=== PATIENT | male | born 1945 | race Caucasian/White ===

== ENCOUNTER → 2016-10-31 | Outpatient (CLI) | payer MEDICARE, BC, OTHER ==
[2016-10-31 13:10] LABS: MEAN CORPUSCULAR HEMOGLOBIN 31.8 pg (27.0-33.0); MEAN CORPUSCULAR HGB CONC 33.7 g/dl (32.0-36.5); MEAN CORPUSCULAR VOLUME 94.2 fl (80.0-96.0); RED CELL DISTRIBUTION WIDTH 11.9 % (11.5-14.5); WHITE BLOOD COUNT 11.4 K/mm3 (4.0-10.0)
[2016-10-31 13:22] LABS: ALBUMIN 3.9 GM/DL (3.2-5.2); ALBUMIN/GLOBULIN RATIO 1.22 (1.00-1.93); BILIRUBIN,TOTAL 0.8 MG/DL (0.2-1.0); CALCIUM LEVEL 9.1 MG/DL (8.8-10.2); CREATININE FOR GFR 1.45 MG/DL (0.70-1.30); GLOMERULAR FILTRATION RATE 51.1 (>42); POTASSIUM SERUM 5.1 MEQ/L (3.5-5.1); TOTAL PROTEIN 7.1 GM/DL (6.4-8.2)
== END ==
LOC: M SMT 08:58
PROVIDERS: ATTEND Internal Medicine
DX: I10 Essential (primary) hypertension (principal); M19.90 Unspecified osteoarthritis, unspecified site

== ENCOUNTER → 2016-10-31 | Outpatient (CLI) | payer MEDICARE, BC, OTHER ==
--- NOTE | 2016-10-31 15:29 | REP ---
Clinical: Chronic renal disease. Technique: Real time mcdowell scale ultrasound examination using curved array transducer. Findings: Right kidney is normal in reniform shape and echogenicity without hydronephrosis, nephrolithiasis, or renal mass lesion. Right kidney measures 9.9 x 4.2 x 5.2 cm with 2.0 cm simple upper pole exophytic cyst. Left kidney is normal in reniform shape and echogenicity without hydronephrosis, nephrolithiasis, or renal mass lesion. Left kidney measures 9.8 x 4.6 x 4.9 cm with 2.9 cm simple mid pole cyst. Bladder is unremarkable and bilateral ureteral jets are identified. Prostate gland is mildly prominent measuring 4.5 x 3.4 x 3.2 cm. Impression: Bilateral solitary simple renal cysts. Signed by Dwaine Sherman MD 10/31/2016 03:20 P
== END ==
LOC: M RAD 14:34
PROVIDERS: ATTEND Internal Medicine Nephrology
DX: N28.1 Cyst of kidney, acquired (principal); N18.3 Chronic kidney disease, stage 3 (moderate); I12.9 Hypertensive chronic kidney disease with stage 1 through stage 4 chronic kidney disease, or unspecified chronic kidney disease; M19.90 Unspecified osteoarthritis, unspecified site

== ENCOUNTER → 2016-11-14 | Outpatient (REF) | payer MEDICARE, BC, OTHER | LOC: M LAB REF 14:14 | PROVIDERS: ATTEND Nurse Practitioner Family | DX: D53.9 Nutritional anemia, unspecified (principal) ==

== ENCOUNTER → 2016-12-18 | Outpatient (CLI) | payer MEDICARE, BC, OTHER ==
[2016-12-18 13:43] LABS: MEAN CORPUSCULAR HEMOGLOBIN 31.7 pg (27.0-33.0); RED CELL DISTRIBUTION WIDTH 12.2 % (11.5-14.5); WHITE BLOOD COUNT 7.3 K/mm3 (4.0-10.0)
== END ==
LOC: M SMT 10:42
PROVIDERS: ATTEND Internal Medicine Cardiovascular Disease
DX: E78.5 Hyperlipidemia, unspecified (principal); D53.9 Nutritional anemia, unspecified; I10 Essential (primary) hypertension

== ENCOUNTER 2017-01-30 09:03 | Inpatient (IN) | payer MEDICARE, BC, OTHER ==
[2017-01-13 11:10] VITALS: BP 136/82
[~2017-01-30] VITALS: Ht 175.3 cm; Wt 83.9 kg
[~2017-01-30 09:03] MED LIST: ASPI81TA85 PO; CO Q10CA PO; GABA-283 PO; LIPI20TA PO; MULT1TAB18 PO; PAXI20TA3 PO; ceFAZolin 1GM INJ (J0690) As Ordered ONE
[2017-01-30] MEDS ORDERED: LR 1,000 ML IV ONE (09:15)
[2017-01-30] MEDS ORDERED: ACETAMINOPHEN 500 MG TAB PO ONE (09:15)
[2017-01-30] MEDS ORDERED: LR 1,000 ML IV SCH ×2 (09:15→14:30)
[2017-01-30] MEDS ORDERED: ceFAZolin 1GM INJ (J0690) As Ordered ONE (10:52)
[2017-01-30] MEDS ORDERED: PROPOFOL 500 MG/50 ML VIAL As Ordered ONE (10:53)
[2017-01-30] MEDS ORDERED: fentaNYL 100 MCG/2 ML INJECTION (J3010) As Ordered ONE ×2 (10:54→11:26)
[2017-01-30] MEDS ORDERED: MIDAZOLAM INJ 2 MG/2 ML VIAL (J2250) As Ordered ONE (10:54)
[2017-01-30] MEDS ORDERED: ROPIvacaine 0.5% 30 ML INJECTION (J2795) As Ordered ONE (11:25)
[2017-01-30] MEDS ORDERED: ONDANSETRON 4MG/2ML VIAL (J2405) As Ordered ONE (12:07)
[2017-01-30] MEDS ORDERED: BUPIVACAINE HCL 0.5% 10 ML VIAL As Ordered ONE (12:10)
[2017-01-30] MEDS ORDERED: ePHEDrine SULFATE 25 MG/5 ML(5MG/ML) SYRINGE As Ordered ONE ×2 (12:25→13:48)
[2017-01-30] MEDS ORDERED: MORPHINE 1MG/ML IN 0.9% NACL 100ML IV BAG As Ordered ONE (13:43)
[2017-01-30] MEDS ORDERED: FLEET ENEMA PR PRN (14:15)
[2017-01-30] MEDS ORDERED: EPIDURAL/PCA KEYS XX PRN (14:30)
[2017-01-30] MEDS ORDERED: fentaNYL 100 MCG/2 ML INJECTION (J3010) IV PRN (14:30)
[2017-01-30] MEDS ORDERED: NALBUPHINE HCL 10 MG/ML AMP (J2300) IV PRN (14:30)
[2017-01-30] MEDS ORDERED: ONDANSETRON 4MG/2ML VIAL (J2405) IV PRN ×2 (14:30)
[2017-01-30] MEDS ORDERED: diphenhydrAMINE INJ 50MG/ML VIAL (J1200) IV PRN (14:30)
[2017-01-30] MEDS ORDERED: NALOXONE INJ 0.4 MG/1 ML VIAL (J2310) IV PRN (14:30)
[2017-01-30] MEDS ORDERED: MORPHINE 1MG/ML IN 0.9% NACL 100ML IV BAG IV PRN (14:30)
[2017-01-30] MEDS: NS 1,000 ML IV SCH (16:32)
[2017-01-30] MEDS ORDERED: WARFARIN SOD 5 MG TAB PO SCH (17:00)
[2017-01-30 19:45] VITALS: BP 121/72
[2017-01-30] MEDS: ATORVASTATIN 20 MG TAB PO SCH (20:09)
[2017-01-30] MEDS: GABAPENTIN 400 MG CAP PO SCH (20:09)
[2017-01-30] MEDS: PARoxetine 20 MG TAB PO SCH (20:09)
[2017-01-30 20:45] VITALS: BP 126/60
[2017-01-30 21:45] VITALS: BP 104/56
[2017-01-31 02:00] VITALS: BP 116/69
[2017-01-31] MEDS: NS 1,000 ML IV SCH (02:45)
[2017-01-31 05:43] LABS: MEAN CORPUSCULAR HEMOGLOBIN 32.1 pg (27.0-33.0); MEAN CORPUSCULAR HGB CONC 32.9 g/dl (32.0-36.5); MEAN CORPUSCULAR VOLUME 97.4 fl (80.0-96.0); RED CELL DISTRIBUTION WIDTH 12.3 % (11.5-14.5); WHITE BLOOD COUNT 19.4 K/mm3 (4.0-10.0)
[2017-01-31 05:55] LABS: CALCIUM LEVEL 7.9 MG/DL (8.8-10.2); CREATININE FOR GFR 1.35 MG/DL (0.70-1.30); GLOMERULAR FILTRATION RATE 55.5 (>42)
[2017-01-31 05:56] LABS: INR 1.08
[2017-01-31 06:00] VITALS: BP 127/72
[2017-01-31] MEDS ORDERED: PERCOCET 5MG/325MG TAB PO PRN (07:00)
[2017-01-31] MEDS ORDERED: ONDANSETRON 4 MG TAB (S0181) PO PRN (07:00)
[2017-01-31] MEDS: SENOKOT S TAB PO SCH ×2 (09:20→20:25)
[2017-01-31] MEDS: MIRALAX *UNIT DOSE* 17GM PACKET PO SCH (09:20)
[2017-01-31] MEDS: GABAPENTIN 400 MG CAP PO SCH ×2 (09:20→20:26)
[2017-01-31] MEDS: MOM 30ML SUSPENSION UDC PO SCH (09:20)
--- NOTE | 2017-01-31 09:30 | REP ---
Clinical: Status post arthroplasty. Technique: AP and cross-table lateral views. Findings: The patient is status post left hip replacement with normal positioning and appearance to the femoral and acetabular components. Overlying postsurgical changes appreciated. Impression: Satisfactory left hip replacement radiographs. Signed by Dwaine Sherman MD 01/31/2017 09:21 A
[2017-01-31 10:00] VITALS: BP 114/70
[2017-01-31] MEDS ORDERED: TAMSULOSIN 0.4 MG CAP PO ONE (10:45)
--- NOTE | 2017-01-31 12:33 | IPNPDOC ---
Subjective Date Seen The patient was seen on 01/30/17. Subjective Chief Complaint/HPI The patient is a 71-year-old male admitted with a reason for visit of Left Hip Arthritis. Events since last encounter patient admitted for elective left total hip replacement for advanced osteoarthritis, Had uneventful surgery , pateint denies any nausea or vomiting or diarrhea, denies any chest pain or cough or sob. Objective Physical Examination General Exam: Positive: Alert, Cooperative, No Acute Distress Eye Exam: Positive: PERRLA, Conjunctiva & lids normal, EOMI, Negative: Sclera icteric ENT Exam: Positive: Atraumatic, Mucous membr. moist/pink, Pharynx Normal Neck Exam: Positive: Supple, Negative: JVD, thyromegaly Chest Exam: Positive: Clear to auscultation, Normal air movement Heart Exam: Positive: Rate Normal, Regular Rhythm, Normal S1, Normal S2, Negative: Murmurs, Rubs Abdomen Exam: Positive: Normal bowel sounds, Soft, Negative: Tenderness, Hepatospenomegaly Extremity Exam: Positive: Normal pulses, Negative: Clubbing, Cyanosis, Edema Assessment /Plan Problems (1) S/P total hip arthroplasty Problem Text: patient will be followed by Dr Sandoval from 01/31/17 pain control and dvt prophylaxis as per orthopedics. (2) CKD (chronic kidney disease), stage III Status: Chronic Response to Treatment: Stable (3) Hyperlipemia Status: Chronic Response to Treatment: Stable Problem Text: continue home medications (4) Depression Status: Chronic Response to Treatment: Stable Problem Text: continue home medications. Plan/VTE VTE Prophylaxis Ordered?: Yes VS, I&O, 24H, Fishbone Vital Signs/I&O Vital Signs Date Time Temp Pulse Resp B/P (MAP) Pulse Ox O2 Delivery O2 Flow Rate FiO2 01/30/17 14:39 97.0 64 20 133/86 (102) 98 Room Air SYLVIA ROMAN MD January 30, 2017 15:20
--- NOTE | 2017-01-31 13:20 | RO ---
DATE OF PROCEDURE: 01/30/2017 PREOPERATIVE DIAGNOSIS: Left hip osteoarthritis. POSTOPERATIVE DIAGNOSIS: Left hip osteoarthritis. PROCEDURE: Left total hip arthroplasty using a high offset #7 Banks stem with a +12 neck, 36 mm head, 54 mm cup with a neutral polyethylene liner. SURGEON: Dr. Jannette Lee NUTRITION COUNSELOR: Mr. Marcio Carter ANESTHESIA: Spinal. COMPLICATIONS: None. ESTIMATED BLOOD LOSS: About 150 mL. SPECIMENS: Femoral head. DESCRIPTION OF PROCEDURE: Antibiotics were given intravenously preoperatively. Then, a successful spinal anesthetic was induced and a Jade catheter was placed, and he was placed in a lateral decubitus position using a Packwood hip positioner. Down leg was well padded, especially peroneal nerve. The left hip area was then prepped and draped in the usual sterile fashion. Then, after appropriate time-out, a longitudinal incision was made for a direct lateral approach to the hip. Bovie cautery was used to coagulate crossing vessels. Tensor fascia was divided in line with the skin incision. We split the gluteus medius in the anterior one-third/posterior two-third junction, then divided the underlying gluteus minimus, and then divided the anterior capsule and carefully dissected the gluteus minimus and gluteus medius off the anterior aspect of the proximal femur as we externally rotated the hip and dislocated it anteriorly. A starter reamer was placed in the piriformis fossa, followed by the canal finding reamer, then the lateralizing reamer. Then, we reamed up to a size 6 reamer, then performed a proximal femoral osteotomy. We were a bit long initially, almost a fingerbreadth and a half above the lesser trochanter; thus, I trimmed it down a bit, then began broaching up to a size 6 broach, but it called for actually a 7 broach because the 6 still had quite a bit of room in the medial calcar. So, I reamed with a 7 reamer, then introduced the 7 broach, and that fit snugly down about a half to three-quarters of a fingerbreadth above the lesser trochanter. Calcar planer was used. I then exposed the acetabulum and performed a complete labral excision 360 degrees and then began reaming, beginning with a 47 mm reamer, advanced up to a 53 mm reamer. The 54 trial fit nicely, but I had to deepen quite a bit in order to get good rim contact. The cup fit nicely with the 54. I then placed the neutral liner, and then we began our trials. We first trialed with the #7 standard offset 1.5 neck with a 36 ball, but it clearly was calling for much more length as well as more offset. The extramedullary guide was used also to place the cup to help set our version and abduction angle. Then, I trialed up to a high offset +8 neck length, and he had good stability with flexion internal rotation and extension external rotation but still had a fair amount of telescoping. Then, I felt we needed a bit more length for better soft tissue tension; thus, I trialed with a +12 with a high offset stem. This gave him a good stable hip with good stability to flexion internal rotation and extension external rotation; thus, I felt this would be the appropriate length and offset. We then removed the trial components, copiously pulsatile lavage irrigated out the femoral canal, placed the real #7 Banks stem, high offset, dried the trunnion, placed the +12 x 36 mm ball, and then reduced the hip. We copiously irrigated out the hip joint and then closed the gluteus back anatomically with interrupted #1 PDS sutures. Then, I closed the gluteus back anatomically with interrupted #1 PDS sutures, irrigated between layers, closed the tensor fascia with a combination of interrupted #1 PDS sutures, then a running #1 single-arm Stratafix, then irrigated again, closed the deep subdermal layers with interrupted #2-0 PDS sutures. Skin was closed with oniel, covered by Adaptic dry sterile bulky dressing. He was then turned supine, and then transferred to the recovery room in stable condition. There were no intraoperative complications. Mr. Marcio Carter was critical to the success of the procedure by helping to manipulate the leg, helping to dislocate and relocate it several times as I placed the leg in the anterior leg bag several times throughout the operation, helped to prepare the patient for surgery, helped to close the wound, amongst many other tasks. Edited: [facility] 02/02/2017 [id number]
[2017-01-31 14:00] VITALS: BP 124/60
--- NOTE | 2017-01-31 14:33 | IPNPDOC ---
Subjective Date Seen The patient was seen on 01/31/17. Subjective Chief Complaint/HPI The patient is a 71-year-old male admitted with a reason for visit of Left Hip Arthritis. General: Denies: Chills, Night Sweats Constitutional: Denies: Chills, Fever Eyes: Denies: Pain, Vision change ENT: Denies: Head Aches, Ear Pain Skin: Denies: Rash, Lesions Pulmonary: Denies: Dyspnea, Cough Cardiovascular: Denies: Chest Pain, Palpitations Gastrointestinal: Denies: Nausea, Vomiting Genitourinary: Denies: Dysuria, Frequency Hematologic: Denies: Bruising, Bleeding Excessively Objective Physical Examination General Exam: Positive: Alert, Cooperative, No Acute Distress Eye Exam: Positive: PERRLA, Conjunctiva & lids normal, EOMI, Negative: Sclera icteric ENT Exam: Positive: Atraumatic, Mucous membr. moist/pink, Pharynx Normal Neck Exam: Positive: Supple, Negative: JVD, thyromegaly Chest Exam: Positive: Clear to auscultation, Normal air movement Heart Exam: Positive: Rate Normal, Regular Rhythm, Normal S1, Normal S2, Negative: Murmurs, Rubs Abdomen Exam: Positive: Normal bowel sounds, Soft, Negative: Tenderness, Hepatospenomegaly Extremity Exam: Positive: Normal pulses, Other (Left hip with limited ROM 2/2 surgery. Neurovascularly intact distally.), Negative: Clubbing, Cyanosis, Edema Assessment /Plan Problems (1) S/P total hip arthroplasty Status: Acute Response to Treatment: Stable Problem Text: s/p Left total hip arthroplasty on 01/30/17 pain mgmt and dvt prophylaxis as per orthopedics service (2) CKD (chronic kidney disease), stage III Status: Chronic Response to Treatment: Stable Problem Text: Serum Cr at baseline (3) Hyperlipemia Status: Chronic Response to Treatment: Stable Problem Text: continue statin (4) Depression Status: Chronic Response to Treatment: Stable Problem Text: continue paxil (5) BPH (benign prostatic hyperplasia) Status: Chronic Response to Treatment: Stable Problem Text: Cont Flomax Plan/VTE VTE Prophylaxis Ordered?: Yes VS, I&O, 24H, Fishbone Vital Signs/I&O Vital Signs Date Time Temp Pulse Resp B/P (MAP) Pulse Ox O2 Delivery O2 Flow Rate FiO2 01/31/17 10:00 16 01/31/17 10:00 98.6 93 114/70 (85) 91 Room Air 01/31/17 05:14 2.0 01/30/17 23:33 94 I&O- Last 24 Hours up to 6 AM 01/31/17 06:00 Intake Total 1210 ml Output Total 700 ml Balance 510 ml Laboratory Data 24H LABS Laboratory Tests 2 01/31/17 05:33: Prothrombin Time 14.1, Prothromb Time International Ratio 1.08, Anion Gap 3L, Glomerular Filtration Rate 55.5, Blood Urea Nitrogen 17, Creatinine 1.35H, Sodium Level 138, Potassium Level 5.0, Chloride Level 105, Carbon Dioxide Level 30, Calcium Level 7.9L CBC/BMP Laboratory Tests 01/31/17 05:33 Red Blood Count 3.86 L, Mean Corpuscular Volume 97.4 H, Mean Corpuscular Hemoglobin 32.1, Mean Corpuscular Hemoglobin Concent 32.9, Red Cell Distribution Width 12.3, Calcium Level 7.9 L DAYSI HOLM MD January 31, 2017 14:33
[2017-01-31] MEDS ORDERED: WARFARIN SOD 5 MG TAB PO ONE (17:00)
[2017-01-31] MEDS: TAMSULOSIN 0.4 MG CAP PO SCH (20:25)
[2017-01-31] MEDS: ATORVASTATIN 20 MG TAB PO SCH (20:25)
[2017-01-31] MEDS: PARoxetine 20 MG TAB PO SCH (20:26)
[2017-01-31] MEDS: PERCOCET 5MG/325MG TAB PO PRN (20:26)
[2017-01-31 22:00] VITALS: BP 123/61
[2017-02-01] MEDS: PERCOCET 5MG/325MG TAB PO PRN ×2 (02:59→09:51)
[2017-02-01 06:00] VITALS: BP 109/56
[2017-02-01 06:25] LABS: MEAN CORPUSCULAR HEMOGLOBIN 32.3 pg (27.0-33.0); MEAN CORPUSCULAR HGB CONC 33.4 g/dl (32.0-36.5); MEAN CORPUSCULAR VOLUME 96.7 fl (80.0-96.0); RED CELL DISTRIBUTION WIDTH 12.2 % (11.5-14.5); WHITE BLOOD COUNT 15.3 K/mm3 (4.0-10.0)
[2017-02-01 06:28] LABS: INR 1.56
[2017-02-01 06:51] LABS: CALCIUM LEVEL 7.9 MG/DL (8.8-10.2); CREATININE FOR GFR 1.47 MG/DL (0.70-1.30); GLOMERULAR FILTRATION RATE 50.3 (>42); POTASSIUM SERUM 4.9 MEQ/L (3.5-5.1)
[2017-02-01] MEDS ORDERED: CALCIUM GLUCONATE 1,000 MG in D5W MINI-BAG PLUS 100 ML IV ONE (09:00)
--- NOTE | 2017-02-01 09:04 | RO ---
DATE OF PROCEDURE: 01/31/2017 PREPROCEDURE DIAGNOSIS: POSTPROCEDURE DIAGNOSIS: PROCEDURE: Complex Jade catheter placement at bedside. SURGEON: Dr. Kayla Grant. FOOD SAFETY OFFICER: None. ANESTHESIA: None. DESCRIPTION OF PROCEDURE: Proper patient was identified. Permission was granted to place the Jade catheter. We prepped him in the usual fashion with Betadine. I then used the lubricant, injected this into the urethra for maximal lubrication. The gel did appear to go through more consistent with benign prostatic hypertrophy (BPH) than stricture. I then took and #18-Nigerien Coud catheter and with gentle continuous pressure, I was able to advance it all the way into the bladder. I then flushed the catheter to flush out the lubricant and then we obtained over 900 mL of clear urine. The patient felt immediately better. The balloon was inflated and the procedure was terminated.
--- NOTE | 2017-02-01 09:04 | CR ---
DATE OF CONSULTATION: 01/31/2017 ATTENDING PHYSICIAN: Dr. Lee REQUESTED SERVICES: Urology, Dr. Grant. CHIEF COMPLAINT: Acute urinary retention. HISTORY OF PRESENT ILLNESS: Mr. Skinner is a very pleasant 71-year-old male who is postop day 1 from a left hip replacement. He has been unable to void since the surgery yesterday. A bladder scans have been performed which were inaccurate but just showed greater than 250 mL. He has been uncomfortable with distention. The nurses have been unable to place a Jade catheter so urology was asked to assist. The patient does report that he had nocturia two to three prior to admission. He felt he had a reasonable stream, not a strong one but a reasonable one, and he felt like he was able to empty his bladder okay. He has never had prostate problems before and he has never been on any prostate medication. His past medical history is significant for high cholesterol and depression. His past surgical history includes left tib/fib open reduction, internal fixation and left finger amputation and now left hip replacement. ALLERGIES: No known drug allergies Medications are listed on the chart. SOCIAL HISTORY: He is a retired [employer] advisor. There is no history of alcohol tobacco or illicit drug use. FAMILY HISTORY: Noncontributory. Review of system is positive for the difficulty urinating, nocturia and decreased force of flow, but he denies any chest pain or shortness of breath, any hematuria, hematochezia, hemoptysis, blood emesis, headaches, seizure, stroke, numbness or weakness of the extremities, nausea, vomiting, diarrhea, constipation, fever, or chills. On exam, he is a very pleasant, delightful 71-year-old gentleman who is in good spirits, but is mildly uncomfortable from bladder distention. He is cooperative with the exam. He is afebrile. Vital signs stable. HEENT is normocephalic, atraumatic. Neck is supple without lymphadenopathy or thyromegaly. Cardiovascular is regular rate and rhythm without rub, gallops or murmurs. Lung skelton are clear to auscultation bilaterally. Abdomen is soft, nontender, not distended. This was after draining his bladder. Extremities show no clubbing, cyanosis or edema. He has a fresh incision on his left hip from his hip replacement yesterday. Genitourinary () exam reveals a normal uncircumcised phallus with bilateral descended testicles. LABORATORY: White blood cell count 19.4, hemoglobin and hematocrit 12.4 and 37.6. Creatinine is 1.35. His INR is 1.08. ASSESSMENT: 1. Acute urinary retention. 2. Likely secondary to benign prostatic hypertrophy (BPH). 3. Nocturia two to three. PLAN: I will go ahead and attempt to place a Coud catheter at bedside. If this fails, then I will attempt to stilette and possibly need cystoscopic guidance to get into the bladder. In addition to that, I am also going to place him on Flomax. I am going to give him 0.8 mg dose now and then will start 0.4 mg by mouth nightly starting again tonight, and I am going to recommend that you given him till Thursday to do a voiding trial.
[2017-02-01] MEDS: MOM 30ML SUSPENSION UDC PO SCH (09:51)
[2017-02-01] MEDS: MIRALAX *UNIT DOSE* 17GM PACKET PO SCH (09:51)
[2017-02-01] MEDS: GABAPENTIN 400 MG CAP PO SCH ×2 (09:51→21:43)
[2017-02-01] MEDS: SENOKOT S TAB PO SCH ×2 (09:51→21:43)
--- NOTE | 2017-02-01 11:49 | IPNPDOC ---
Assessment/Plan Date Seen The patient was seen on 02/01/17. Patient Summary pt with aur secondary to bph and post op from left hip replacement. on flomax. urine clear. plan on d/c young in am and give voiding trail. if voids well will leave young out if fails void trial will either teach pt how to cath himself or replace the young either way please d/c pt with flomax and have him f/u with local urologist. Problems (1) S/P total hip arthroplasty Status: Acute (2) CKD (chronic kidney disease), stage III Status: Chronic (3) Hyperlipemia Status: Chronic (4) Depression Status: Chronic (5) BPH (benign prostatic hyperplasia) Status: Chronic Response to Treatment: Improving Urology Problem Text: plan as above Plan/VTE VTE Prophylaxis Ordered?: Yes Subjective Review oF Systems Chief Complaint The patient is a 71-year-old male admitted with a reason for visit of Left Hip Arthritis. Events since Last Encounter pt with aur secondary to bph and post op from left hip replacement. on flomax. urine clear. General: Reports: Normal Appetite, Denies: Fatigue, Malaise Constitutional: Reports: Weakness Genitourinary: Reports: Retention (tolerating young well) Musculoskeletal: Reports: Joint Pain (pain in left hip as expected.) Psych: Reports: Mood Normal Objective Physical Examination General Exam: Cooperative, Mild Distress Heart Exam: Positive: Rate Normal, Regular Rhythm, Normal S1, Normal S2, Negative: Murmurs, Rubs Male Exam: Normal Genital Exam (young in position, draining well with clear urine.) Vital Signs/I&O Vital Signs Date Time Temp Pulse Resp B/P (MAP) Pulse Ox O2 Delivery O2 Flow Rate FiO2 02/01/17 10:21 18 02/01/17 06:00 98.2 80 109/56 (73) 94 Room Air 01/31/17 05:14 2.0 01/30/17 23:33 94 I&O- Last 24 Hours up to 6 AM 02/01/17 05:59 Intake Total 780 ml Output Total 1450 ml Balance -670 ml Laboratory Data Labs 24H Laboratory Tests 2 02/01/17 05:32: Prothrombin Time 18.8H, Prothromb Time International Ratio 1.56, Anion Gap 6L, Glomerular Filtration Rate 50.3, Blood Urea Nitrogen 19H, Creatinine 1.47H, Sodium Level 136, Potassium Level 4.9, Chloride Level 100, Carbon Dioxide Level 30, Calcium Level 7.9L CBC/BMP Laboratory Tests 02/01/17 05:32 Red Blood Count 3.35 L, Mean Corpuscular Volume 96.7 H, Mean Corpuscular Hemoglobin 32.3, Mean Corpuscular Hemoglobin Concent 33.4, Red Cell Distribution Width 12.2, Calcium Level 7.9 L DEMARIO NATION MD February 01, 2017 11:49
[2017-02-01 14:00] VITALS: BP 142/69
--- NOTE | 2017-02-01 15:19 | IPNPDOC ---
Subjective Date Seen The patient was seen on 02/01/17. Subjective Chief Complaint/HPI The patient is a 71-year-old male admitted with a reason for visit of Left Hip Arthritis. General: Denies: Chills, Night Sweats Constitutional: Denies: Chills, Fever Eyes: Denies: Pain, Vision change ENT: Denies: Head Aches, Ear Pain Skin: Denies: Rash, Lesions Pulmonary: Denies: Dyspnea, Cough Cardiovascular: Denies: Chest Pain, Palpitations Gastrointestinal: Denies: Nausea, Vomiting Genitourinary: Denies: Dysuria, Frequency Hematologic: Denies: Bruising, Bleeding Excessively Objective Physical Examination General Exam: Positive: Alert, Cooperative, No Acute Distress Eye Exam: Positive: PERRLA, Conjunctiva & lids normal, EOMI, Negative: Sclera icteric ENT Exam: Positive: Atraumatic, Mucous membr. moist/pink, Pharynx Normal Neck Exam: Positive: Supple, Negative: JVD, thyromegaly Chest Exam: Positive: Clear to auscultation, Normal air movement Heart Exam: Positive: Rate Normal, Regular Rhythm, Normal S1, Normal S2, Negative: Murmurs, Rubs Abdomen Exam: Positive: Normal bowel sounds, Soft, Negative: Tenderness, Hepatospenomegaly Extremity Exam: Positive: Normal pulses, Other (Left hip with limited ROM 2/2 surgery. Neurovascularly intact distally.), Negative: Clubbing, Cyanosis, Edema Assessment /Plan Problems (1) S/P total hip arthroplasty Status: Acute Problem Text: s/p Left total hip arthroplasty on 01/30/17 pain mgmt and dvt prophylaxis as per orthopedics service (2) CKD (chronic kidney disease), stage III Status: Chronic Problem Text: Serum Cr at baseline (3) Hyperlipemia Status: Chronic Problem Text: continue statin (4) Depression Status: Chronic Problem Text: continue paxil (5) BPH (benign prostatic hyperplasia) Status: Chronic Problem Text: Cont Flomax, F/U with Urology Plan/VTE VTE Prophylaxis Ordered?: Yes VS, I&O, 24H, Fishbone Vital Signs/I&O Vital Signs Date Time Temp Pulse Resp B/P (MAP) Pulse Ox O2 Delivery O2 Flow Rate FiO2 02/01/17 11:49 Room Air 02/01/17 10:21 18 02/01/17 06:00 98.2 80 109/56 (73) 94 01/31/17 05:14 2.0 01/30/17 23:33 94 I&O- Last 24 Hours up to 6 AM 02/01/17 06:00 Intake Total 1020 ml Output Total 2450 ml Balance -1430 ml Laboratory Data 24H LABS Laboratory Tests 2 02/01/17 05:32: Prothrombin Time 18.8H, Prothromb Time International Ratio 1.56, Anion Gap 6L, Glomerular Filtration Rate 50.3, Blood Urea Nitrogen 19H, Creatinine 1.47H, Sodium Level 136, Potassium Level 4.9, Chloride Level 100, Carbon Dioxide Level 30, Calcium Level 7.9L CBC/BMP Laboratory Tests 02/01/17 05:32 Red Blood Count 3.35 L, Mean Corpuscular Volume 96.7 H, Mean Corpuscular Hemoglobin 32.3, Mean Corpuscular Hemoglobin Concent 33.4, Red Cell Distribution Width 12.2, Calcium Level 7.9 L DAYSI HOLM MD February 01, 2017 15:18
[2017-02-01] MEDS: ACETAMINOPHEN TAB 650MG DOSE (2X325MG) PO PRN (15:28)
[2017-02-01] MEDS ORDERED: WARFARIN SOD 5 MG TAB PO ONE (17:00)
[2017-02-01] MEDS: ATORVASTATIN 20 MG TAB PO SCH (21:43)
[2017-02-01] MEDS: TAMSULOSIN 0.4 MG CAP PO SCH (21:43)
[2017-02-01] MEDS: PARoxetine 20 MG TAB PO SCH (21:43)
[2017-02-01 22:00] VITALS: BP 132/70
[2017-02-02] MEDS: ACETAMINOPHEN TAB 650MG DOSE (2X325MG) PO PRN (05:25)
[2017-02-02 06:00] VITALS: BP 130/71
[2017-02-02 06:47] LABS: MEAN CORPUSCULAR HEMOGLOBIN 32.7 pg (27.0-33.0); MEAN CORPUSCULAR HGB CONC 34.1 g/dl (32.0-36.5); MEAN CORPUSCULAR VOLUME 95.9 fl (80.0-96.0); RED CELL DISTRIBUTION WIDTH 12.2 % (11.5-14.5); WHITE BLOOD COUNT 11.3 K/mm3 (4.0-10.0)
[2017-02-02 06:52] LABS: ANION GAP 4 MEQ/L (8-16); BLOOD UREA NITROGEN 16 MG/DL (7-18); CALCIUM LEVEL 8.3 MG/DL (8.8-10.2); CARBON DIOXIDE LEVEL 32 MEQ/L (21-32); CHLORIDE LEVEL 100 MEQ/L (98-107); CREATININE FOR GFR 1.23 MG/DL (0.70-1.30); GLOMERULAR FILTRATION RATE > 60.0 (>42); GLUCOSE, FASTING 121 MG/DL (83-110); POTASSIUM SERUM 4.4 MEQ/L (3.5-5.1); SODIUM LEVEL 136 MEQ/L (136-145)
[2017-02-02 06:54] LABS: INR 1.67
[2017-02-02] MEDS: GABAPENTIN 400 MG CAP PO SCH ×2 (08:58→21:20)
[2017-02-02] MEDS: SENOKOT S TAB PO SCH ×2 (08:58→21:20)
[2017-02-02] MEDS: traMADol 50 MG TAB PO PRN ×2 (08:58→16:23)
[2017-02-02] MEDS: MIRALAX *UNIT DOSE* 17GM PACKET PO SCH (08:59)
[2017-02-02] MEDS: MOM 30ML SUSPENSION UDC PO SCH (08:59)
[2017-02-02 14:00] VITALS: BP 157/83
--- NOTE | 2017-02-02 16:48 | IPNPDOC ---
Subjective Date Seen The patient was seen on 02/02/17. Subjective Chief Complaint/HPI The patient is a 71-year-old male admitted with a reason for visit of Left Hip Arthritis. General: Denies: Chills, Night Sweats Constitutional: Denies: Chills Eyes: Denies: Pain, Vision change ENT: Denies: Head Aches, Ear Pain Skin: Denies: Rash, Lesions Pulmonary: Denies: Dyspnea, Cough Cardiovascular: Denies: Chest Pain, Palpitations Gastrointestinal: Denies: Nausea, Vomiting Genitourinary: Denies: Dysuria, Frequency Hematologic: Denies: Bruising, Bleeding Excessively Objective Physical Examination General Exam: Positive: Alert, Cooperative, No Acute Distress Eye Exam: Positive: PERRLA, Conjunctiva & lids normal, EOMI, Negative: Sclera icteric ENT Exam: Positive: Atraumatic, Mucous membr. moist/pink, Pharynx Normal Neck Exam: Positive: Supple, Negative: JVD, thyromegaly Chest Exam: Positive: Clear to auscultation, Normal air movement Heart Exam: Positive: Rate Normal, Regular Rhythm, Normal S1, Normal S2, Negative: Murmurs, Rubs Abdomen Exam: Positive: Normal bowel sounds, Soft, Negative: Tenderness, Hepatospenomegaly Extremity Exam: Positive: Normal pulses, Other (Left hip with limited ROM 2/2 surgery. Neurovascularly intact distally.), Negative: Clubbing, Cyanosis, Edema Assessment /Plan Problems (1) S/P total hip arthroplasty Status: Acute Problem Text: s/p Left total hip arthroplasty on 01/30/17 pain mgmt and dvt prophylaxis as per orthopedics service (2) CKD (chronic kidney disease), stage III Status: Chronic Problem Text: Serum Cr at baseline (3) Hyperlipemia Status: Chronic Problem Text: continue statin (4) Depression Status: Chronic Problem Text: continue paxil (5) BPH (benign prostatic hyperplasia) Status: Chronic Problem Text: Cont Flomax, F/U with Urology Plan/VTE VTE Prophylaxis Ordered?: Yes VS, I&O, 24H, Fishbone Vital Signs/I&O Vital Signs Date Time Temp Pulse Resp B/P (MAP) Pulse Ox O2 Delivery O2 Flow Rate FiO2 02/02/17 16:23 14 Room Air 02/02/17 14:00 100.4 85 157/83 (107) 96 01/31/17 05:14 2.0 01/30/17 23:33 94 I&O- Last 24 Hours up to 6 AM 02/02/17 05:59 Intake Total 2220 ml Output Total 3600 ml Balance -1380 ml Laboratory Data 24H LABS Laboratory Tests 2 02/02/17 06:18: Prothrombin Time 19.8H, Prothromb Time International Ratio 1.67, Anion Gap 4L, Glomerular Filtration Rate > 60.0, Blood Urea Nitrogen 16, Creatinine 1.23, Sodium Level 136, Potassium Level 4.4, Chloride Level 100, Carbon Dioxide Level 32, Calcium Level 8.3L CBC/BMP Laboratory Tests 02/02/17 06:18 Red Blood Count 3.15 L, Mean Corpuscular Volume 95.9, Mean Corpuscular Hemoglobin 32.7, Mean Corpuscular Hemoglobin Concent 34.1, Red Cell Distribution Width 12.2, Calcium Level 8.3 L DAYSI HOLM MD February 02, 2017 16:48
[2017-02-02] MEDS ORDERED: WARFARIN SOD 3 MG TAB PO ONE (17:00)
[2017-02-02] MEDS: PARoxetine 20 MG TAB PO SCH (21:20)
[2017-02-02] MEDS: TAMSULOSIN 0.4 MG CAP PO SCH (21:20)
[2017-02-02] MEDS: ATORVASTATIN 20 MG TAB PO SCH (21:20)
[2017-02-02 22:00] VITALS: BP 132/77
[2017-02-03] MEDS: traMADol 50 MG TAB PO PRN ×3 (05:22→16:44)
[2017-02-03 06:00] VITALS: BP 130/69
[2017-02-03 06:52] LABS: INR 1.71
[2017-02-03] MEDS: GABAPENTIN 400 MG CAP PO SCH ×2 (08:27→21:31)
[2017-02-03] MEDS: MIRALAX *UNIT DOSE* 17GM PACKET PO SCH (08:28)
[2017-02-03] MEDS: MOM 30ML SUSPENSION UDC PO SCH (08:28)
[2017-02-03] MEDS: SENOKOT S TAB PO SCH ×2 (08:28→21:30)
[2017-02-03 08:35] LABS: ALBUMIN 2.5 GM/DL (3.2-5.2); ALBUMIN/GLOBULIN RATIO 0.66 (1.00-1.93); BILIRUBIN,TOTAL 0.7 MG/DL (0.2-1.0); CALCIUM LEVEL 8.2 MG/DL (8.8-10.2); CREATININE FOR GFR 1.27 MG/DL (0.70-1.30); GLOMERULAR FILTRATION RATE 59.5 (>42); POTASSIUM SERUM 4.5 MEQ/L (3.5-5.1); TOTAL PROTEIN 6.3 GM/DL (6.4-8.2)
[2017-02-03 08:45] LABS: BASO % 0.2 % (0.0-1.0); EOS # 0.2 K/mm3 (0.0-0.50); LARGE UNSTAINED CELL # 0.2 K/mm3 (0.0-0.4); LARGE UNSTAINED CELL % 1.8 % (0.0-4.0); LYMPH # 1.1 K/mm3 (1.5-4.5); LYMPH % 9.1 % (24.0-44.0); MEAN CORPUSCULAR HEMOGLOBIN 32.1 pg (27.0-33.0); MEAN CORPUSCULAR HGB CONC 33.3 g/dl (32.0-36.5); MEAN CORPUSCULAR VOLUME 96.4 fl (80.0-96.0); MONO # 0.7 K/mm3 (0.0-0.8); MONO % 6.4 % (0.0-5.0); NEUTROPHILS # 8.1 K/mm3 (1.8-7.7); NEUTROPHILS % 80.5 % (36.0-66.0); PLATELET COUNT, AUTOMATED 198 k/mm3 (150-450); RED CELL DISTRIBUTION WIDTH 12.3 % (11.5-14.5); WHITE BLOOD COUNT 10.1 K/mm3 (4.0-10.0)
[2017-02-03 14:00] VITALS: BP 134/80
--- NOTE | 2017-02-03 15:26 | IPNPDOC ---
Text Note Date of Service The patient was seen on 02/03/17. NOTE Subjective: Patient was seen and examined at the bedside. Patient notes that he is having mild pain at the site, although notes that it's tolerable. He denies any problems. Advised him that physical therapy will continue. Objective: Vitals (See below) General: Lying in bed, no acute distress, comfortable, AAOx3 HEENT: NC, AT CVS: RRR, +S1S2 Lungs: Fair air entry b/l, -w/r/r Abdomen: Soft, ND, NT, +BSx4 Extremities: +PPx4, - Edema, - Calf tenderness, Left hip tenderness Assessment and plan: 1. Left hip pain - 2/2 arthritis - s/p Left hip total arthroplasty (POD #4) - Wound shows no signs of infection, but does have large amounts of drainage - c/w Physical therapy - Pain management and DVT prophylaxis is being monitored by primary team ( Orthopedic service) 2. CKD3 - Cr at baseline 3. DLP - c/w atorvastatin 4. Depression - c/w Paroxetine 5. BPH - c/w Tamsulosin - Will need to follow up with urology 6. DVT prophylaxis - c/w full anticoagulation with Coumadin - Managed by primary team VSAnyi, I+O VS, Anyi, I+O Laboratory Tests 02/03/17 08:00 Red Blood Count 3.27 L, Mean Corpuscular Volume 96.4 H, Mean Corpuscular Hemoglobin 32.1, Mean Corpuscular Hemoglobin Concent 33.3, Red Cell Distribution Width 12.3, Neutrophils (%) (Auto) 80.5 H, Lymphocytes (%) (Auto) 9.1 L, Monocytes (%) (Auto) 6.4 H, Eosinophils (%) (Auto) 2.0, Basophils (%) ( Auto) 0.2, Neutrophils # (Auto) 8.1 H, Lymphocytes # (Auto) 1.1 L, Monocytes # ( Auto) 0.7, Eosinophils # (Auto) 0.2, Basophils # (Auto) 0.0, Calcium Level 8.2 L , Aspartate Amino Transf (AST/SGOT) 39 H, Alanine Aminotransferase (ALT/SGPT) 22 , Alkaline Phosphatase 82, Total Bilirubin 0.7, Total Protein 6.3 L, Albumin 2.5 L Vital Signs Date Time Temp Pulse Resp B/P (MAP) Pulse Ox O2 Delivery O2 Flow Rate FiO2 02/03/17 14:00 100.1 84 18 134/80 (98) 96 Room Air 01/31/17 05:14 2.0 01/30/17 23:33 94 I&O- Last 24 Hours up to 6 AM 02/03/17 06:00 Intake Total 1560 ml Output Total 3175 ml Balance -1615 ml MARY JANE NUÑEZ MD February 03, 2017 15:26
[2017-02-03] MEDS: ACETAMINOPHEN TAB 650MG DOSE (2X325MG) PO PRN (15:49)
[2017-02-03] MEDS ORDERED: WARFARIN SOD 3 MG TAB PO ONE (17:00)
[2017-02-03] MEDS: TAMSULOSIN 0.4 MG CAP PO SCH (21:30)
[2017-02-03] MEDS: ATORVASTATIN 20 MG TAB PO SCH (21:30)
[2017-02-03] MEDS: PARoxetine 20 MG TAB PO SCH (21:31)
[2017-02-03 22:00] VITALS: BP 129/78
[2017-02-04] MEDS: traMADol 50 MG TAB PO PRN ×2 (05:16→11:56)
[2017-02-04 06:00] VITALS: BP 132/76
[2017-02-04 07:05] LABS: BASO % 0.3 % (0.0-1.0); EOS # 0.2 K/mm3 (0.0-0.50); EOS % 3.5 % (0.0-3.0); LARGE UNSTAINED CELL # 0.2 K/mm3 (0.0-0.4); LARGE UNSTAINED CELL % 2.3 % (0.0-4.0); LYMPH # 1.1 K/mm3 (1.5-4.5); LYMPH % 13.8 % (24.0-44.0); MEAN CORPUSCULAR HEMOGLOBIN 32.4 pg (27.0-33.0); MEAN CORPUSCULAR HGB CONC 33.2 g/dl (32.0-36.5); MEAN CORPUSCULAR VOLUME 97.4 fl (80.0-96.0); MONO # 0.5 K/mm3 (0.0-0.8); MONO % 8.1 % (0.0-5.0); NEUTROPHILS # 4.7 K/mm3 (1.8-7.7); NEUTROPHILS % 71.9 % (36.0-66.0); PLATELET COUNT, AUTOMATED 212 k/mm3 (150-450); RED CELL DISTRIBUTION WIDTH 12.2 % (11.5-14.5); WHITE BLOOD COUNT 6.6 K/mm3 (4.0-10.0)
[2017-02-04 07:12] LABS: INR 1.8
[2017-02-04] MEDS ORDERED: COUM2.5T11 PO (07:37)
[2017-02-04] MEDS ORDERED: TRAM50TA2 PO (07:37)
[2017-02-04 08:02] LABS: ALBUMIN 2.4 GM/DL (3.2-5.2); ALBUMIN/GLOBULIN RATIO 0.77 (1.00-1.93); ALKALINE PHOSPHATASE 83 U/L (45-117); ALT/SGPT 31 U/L (12-78); ANION GAP 7 MEQ/L (8-16); AST/SGOT 42 U/L (15-37); BILIRUBIN,TOTAL 0.7 MG/DL (0.2-1.0); BLOOD UREA NITROGEN 22 MG/DL (7-18); CALCIUM LEVEL 8.1 MG/DL (8.8-10.2); CARBON DIOXIDE LEVEL 28 MEQ/L (21-32); CHLORIDE LEVEL 104 MEQ/L (98-107); CREATININE FOR GFR 1.24 MG/DL (0.70-1.30); GLOMERULAR FILTRATION RATE > 60.0 (>42); GLUCOSE, FASTING 99 MG/DL (83-110); MAGNESIUM LEVEL 2.5 MG/DL (1.8-2.4); POTASSIUM SERUM 4.4 MEQ/L (3.5-5.1); SODIUM LEVEL 139 MEQ/L (136-145); TOTAL PROTEIN 5.5 GM/DL (6.4-8.2)
[2017-02-04] MEDS: MIRALAX *UNIT DOSE* 17GM PACKET PO SCH (08:57)
[2017-02-04] MEDS: GABAPENTIN 400 MG CAP PO SCH (08:57)
[2017-02-04] MEDS: SENOKOT S TAB PO SCH (08:57)
[2017-02-04] MEDS: MOM 30ML SUSPENSION UDC PO SCH (08:57)
[2017-02-04] MEDS ORDERED: PEG1POW PO (09:28)
[2017-02-04] MEDS ORDERED: FLOM5CAP PO (09:28)
--- NOTE | 2017-02-04 11:42 | IPNPDOC ---
Text Note Date of Service The patient was seen on 02/04/17. NOTE Subjective: Patient was seen and examined at the bedside. He notes that he continued to make progress with physical therapy and the drainage from his hip has been minimal. Objective: Vitals (See below) General: Lying in bed, no acute distress, comfortable, AAOx3 HEENT: NC, AT CVS: RRR, +S1S2 Lungs: Fair air entry b/l, -w/r/r Abdomen: Soft, ND, NT, +BSx4 Extremities: +PPx4, - Edema, - Calf tenderness, Left hip tenderness Assessment and plan: 1. Left hip pain - 2/2 arthritis - s/p Left hip total arthroplasty (POD #5) - Wound shows no signs of infection, but does have large amounts of drainage - c/w Physical therapy - Pain management and DVT prophylaxis is being monitored by primary team ( Orthopedic service) 2. CKD3 - Cr at baseline 3. DLP - c/w atorvastatin 4. Depression - c/w Paroxetine 5. BPH - c/w Tamsulosin - Will need to follow up with urology 6. DVT prophylaxis - c/w full anticoagulation with Coumadin - Managed by primary team VSAnyi, I+O VS, Anyi, I+O Laboratory Tests 02/04/17 06:43 Red Blood Count 3.27 L, Mean Corpuscular Volume 97.4 H, Mean Corpuscular Hemoglobin 32.4, Mean Corpuscular Hemoglobin Concent 33.2, Red Cell Distribution Width 12.2, Neutrophils (%) (Auto) 71.9 H, Lymphocytes (%) (Auto) 13.8 L, Monocytes (%) (Auto) 8.1 H, Eosinophils (%) (Auto) 3.5 H, Basophils (%) (Auto) 0.3, Neutrophils # (Auto) 4.7, Lymphocytes # (Auto) 1.1 L, Monocytes # ( Auto) 0.5, Eosinophils # (Auto) 0.2, Basophils # (Auto) 0.0, Calcium Level 8.1 L , Aspartate Amino Transf (AST/SGOT) 42 H, Alanine Aminotransferase (ALT/SGPT) 31 , Alkaline Phosphatase 83, Total Bilirubin 0.7, Total Protein 5.5 L, Albumin 2.4 L Vital Signs Date Time Temp Pulse Resp B/P (MAP) Pulse Ox O2 Delivery O2 Flow Rate FiO2 02/04/17 10:00 Room Air 02/04/17 06:00 99.6 83 18 132/76 (94) 94 02/04/17 05:16 95 01/31/17 05:14 2.0 I&O- Last 24 Hours up to 6 AM 02/04/17 06:00 Intake Total 1920 ml Output Total 2050 ml Balance -130 ml MARY JANE NUÑEZ MD February 04, 2017 11:42
== END 2017-02-04 12:15 | disposition home health service (06) | DRG 470 ==
LOC: M OR 09:03 → M MS5PR 14:50
PROVIDERS: ADMIT Orthopaedic Surgery; ATTEND Orthopaedic Surgery
PROC: 0SRB02Z Replacement of Left Hip Joint with Metal on Polyethylene Synthetic Substitute, Open Approach (ICD-10-PCS; principal; 2017-01-30 11:40)
DX: M16.12 Unilateral primary osteoarthritis, left hip (principal); N18.3 Chronic kidney disease, stage 3 (moderate); E78.5 Hyperlipidemia, unspecified; F32.9 Major depressive disorder, single episode, unspecified; N40.0 Benign prostatic hyperplasia without lower urinary tract symptoms; R33.8 Other retention of urine

== ENCOUNTER → 2017-02-16 | Outpatient (REF) | payer MEDICARE, OTHER ==
[~2017-02-16] MED LIST changes: +COUM2.5T11 PO; +FLOM5CAP PO; +PEG1POW PO; +TRAM50TA2 PO; -ceFAZolin 1GM INJ (J0690) As Ordered ONE
[2017-02-16 12:15] LABS: INR 1.47
== END ==
LOC: M LABDRAW1 10:55
PROVIDERS: ATTEND Orthopaedic Surgery
DX: Z51.81 Encounter for therapeutic drug level monitoring (principal); Z79.01 Long term (current) use of anticoagulants

== ENCOUNTER → 2017-03-16 | Outpatient (REF) | payer MEDICARE, OTHER ==
[~2017-03-16] MED LIST changes: -COUM2.5T11 PO; +COUM2.5T17 PO; +PAXI20TA29 PO; -PAXI20TA3 PO
[2017-03-16 13:03] LABS: BASO % 0.5 % (0.0-1.0); EOS # 0.2 K/mm3 (0.0-0.50); EOS % 2.7 % (0.0-3.0); LARGE UNSTAINED CELL # 0.2 K/mm3 (0.0-0.4); LARGE UNSTAINED CELL % 1.6 % (0.0-4.0); LYMPH # 1.8 K/mm3 (1.5-4.5); LYMPH % 19.3 % (24.0-44.0); MEAN CORPUSCULAR HEMOGLOBIN 31.2 pg (27.0-33.0); MEAN CORPUSCULAR HGB CONC 32.9 g/dl (32.0-36.5); MEAN CORPUSCULAR VOLUME 94.9 fl (80.0-96.0); MONO # 0.6 K/mm3 (0.0-0.8); MONO % 6.7 % (0.0-5.0); NEUTROPHILS # 6.4 K/mm3 (1.8-7.7); NEUTROPHILS % 69.2 % (36.0-66.0); PLATELET COUNT, AUTOMATED 243 k/mm3 (150-450); RED CELL DISTRIBUTION WIDTH 12.9 % (11.5-14.5); WHITE BLOOD COUNT 9.3 K/mm3 (4.0-10.0)
[2017-03-16 13:49] LABS: ALBUMIN 3.7 GM/DL (3.2-5.2); CALCIUM LEVEL 9.2 MG/DL (8.8-10.2); CREATININE FOR GFR 1.42 MG/DL (0.70-1.30); GLOMERULAR FILTRATION RATE 52.2 (>42); PHOSPHORUS LEVEL 3.2 MG/DL (2.5-4.9)
[2017-03-16 14:08] LABS: POTASSIUM SERUM 5.4 MEQ/L (3.5-5.1)
== END ==
LOC: M LAB REF 12:12 → M LABDRWAD 12:12
PROVIDERS: ATTEND Internal Medicine Nephrology
DX: N18.3 Chronic kidney disease, stage 3 (moderate) (principal); D63.1 Anemia in chronic kidney disease

== ENCOUNTER → 2017-05-30 | Outpatient (CLI) | payer MEDICARE, BC, OTHER ==
--- NOTE | 2017-05-31 09:06 | REP ---
Clinical: Trauma. Fall. Technique: AP, lateral, bilateral oblique views of the left wrist. Findings: There is a subtle nondisplaced fracture involving the distal radial metaphysis which appears to extend to the articular surface. Overlying soft tissue swelling is appreciated. The remainder of the osseous structures appear intact. Underlying age-related degenerative changes noted. Impression: Subtle nondisplaced fracture involving the distal radial metaphysis extending to the articular surface. Signed by Dwaine Sherman MD 05/31/2017 08:09 A
--- NOTE | 2017-05-31 09:06 | REP ---
Clinical: Trauma. Fall. Technique: AP, lateral, bilateral oblique views of the left hand. Findings: There is a subtle nondisplaced fracture involving the distal radial metaphysis extending to the articular surface. 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 Underlying age-related osteoarthritic degenerative changes throughout the wrist and hand. Impression: Subtle nondisplaced fracture involving the distal radial metaphysis. Age-related osteopenia and arthritic degenerative changes. Signed by Dwaine Sherman MD 05/31/2017 08:14 A
--- NOTE | 2017-05-31 09:06 | REP ---
Clinical: Trauma. Technique: Frontal view of the chest with multiple views of the left hemithorax. Findings: Frontal view of the chest demonstrates no acute cardiopulmonary process. Multiple views of the left hemithorax demonstrates no obvious acute rib fracture or pathology. Impression: Normal left rib series Signed by Dwaine Sherman MD 05/31/2017 08:13 A
== END ==
LOC: M RAD 19:32
PROVIDERS: ATTEND Physician Assistant
DX: R07.81 Pleurodynia (principal); S62.92XA Unspecified fracture of left hand, initial encounter for closed fracture; X58.XXXA Exposure to other specified factors, initial encounter; Y92.9 Unspecified place or not applicable; Y93.9 Activity, unspecified; Y99.9 Unspecified external cause status

== ENCOUNTER → 2017-06-22 | Outpatient (CLI) | payer MEDICARE, BC, OTHER ==
[2017-06-22 19:27] LABS: ALBUMIN 3.9 GM/DL (3.2-5.2); ALBUMIN/GLOBULIN RATIO 1.26 (1.00-1.93); BILIRUBIN,TOTAL 0.5 MG/DL (0.2-1.0); CALCIUM LEVEL 9.6 MG/DL (8.8-10.2); CREATININE FOR GFR 1.35 MG/DL (0.70-1.30); GLOMERULAR FILTRATION RATE 55.3 (>42); POTASSIUM SERUM 4.9 MEQ/L (3.5-5.1)
[2017-06-22 19:38] LABS: MEAN CORPUSCULAR HEMOGLOBIN 30.8 pg (27.0-33.0); MEAN CORPUSCULAR HGB CONC 32.4 g/dl (32.0-36.5); MEAN CORPUSCULAR VOLUME 95.1 fl (80.0-96.0); RED CELL DISTRIBUTION WIDTH 13.2 % (11.5-14.5); WHITE BLOOD COUNT 7.5 10^3/uL (4.0-10.0)
== END ==
LOC: M SMT 09:11
PROVIDERS: ATTEND Internal Medicine Cardiovascular Disease
DX: E78.5 Hyperlipidemia, unspecified (principal); I10 Essential (primary) hypertension

== ENCOUNTER → 2017-06-22 | Outpatient (CLI) | payer MEDICARE, BC, OTHER ==
[2017-06-22 19:25] LABS: ALBUMIN 3.9 GM/DL (3.2-5.2); CALCIUM LEVEL 9.1 MG/DL (8.8-10.2); CREATININE FOR GFR 1.38 MG/DL (0.70-1.30); GLOMERULAR FILTRATION RATE 53.9 (>42); MAGNESIUM LEVEL 2.5 MG/DL (1.8-2.4); PHOSPHORUS LEVEL 3.6 MG/DL (2.5-4.9); POTASSIUM SERUM 5.1 MEQ/L (3.5-5.1); URIC ACID 6.3 MG/DL (3.5-7.2)
[2017-06-22 19:52] LABS: BASO % 0.5 % (0.0-1.0); EOS # 0.4 10^3/uL (0.0-0.50); IMMATURE GRANULOCYTE % 0.3 % (0-0); LYMPH # 1.5 10^3/uL (1.5-4.5); LYMPH % 19.8 % (24.0-44.0); MEAN CORPUSCULAR HEMOGLOBIN 30.8 pg (27.0-33.0); MEAN CORPUSCULAR HGB CONC 32.3 g/dl (32.0-36.5); MEAN CORPUSCULAR VOLUME 95.1 fl (80.0-96.0); MONO # 0.6 10^3/uL (0.0-0.8); MONO % 8.5 % (0.0-5.0); NEUTROPHILS # 4.9 10^3/uL (1.8-7.7); NEUTROPHILS % 65.9 % (36.0-66.0); PLATELET COUNT, AUTOMATED 281 10^3/uL (150-450); RED CELL DISTRIBUTION WIDTH 13.3 % (11.5-14.5); WHITE BLOOD COUNT 7.4 10^3/uL (4.0-10.0)
== END ==
LOC: M SMT 09:15
PROVIDERS: ATTEND Internal Medicine Nephrology
DX: I12.9 Hypertensive chronic kidney disease with stage 1 through stage 4 chronic kidney disease, or unspecified chronic kidney disease (principal); N18.3 Chronic kidney disease, stage 3 (moderate); D63.1 Anemia in chronic kidney disease; E87.5 Hyperkalemia; E78.5 Hyperlipidemia, unspecified

== ENCOUNTER → 2018-06-24 | Outpatient (REF) | payer MEDICARE, BC, OTHER ==
[2018-06-24 15:08] LABS: FERRITIN 85 NG/ML (26-388); IRON (FE) 55 UG/DL (65-175); PERCENT SATURATION 18.5 % (19.7-50.0); TOTAL IRON BINDING CAPACITY 297 UG/DL (250-450)
[2018-06-24 15:23] LABS: FOLATE > 24.0 NG/ML
== END ==
LOC: M LAB REF 14:02
DX: N18.3 Chronic kidney disease, stage 3 (moderate) (principal); D63.1 Anemia in chronic kidney disease
CPT/HCPCS: 82746

== ENCOUNTER → 2018-07-01 | Outpatient (CLI) | payer MEDICARE, BC, OTHER ==
[2018-07-01 14:04] LABS: BASO # 0.1 10^3/uL (0.0-0.2); BASO % 0.8 % (0.0-1.0); EOS # 0.3 10^3/uL (0.0-0.50); EOS % 4.3 % (0.0-3.0); HEMATOCRIT 42.5 % (42.0-52.0); HEMOGLOBIN 13.7 g/dl (13.5-17.5); IMMATURE GRANULOCYTE % 0.2 % (0-3.0); LYMPH # 1.2 10^3/uL (1.5-4.5); LYMPH % 19.3 % (24.0-44.0); MEAN CORPUSCULAR HEMOGLOBIN 31.4 pg (27.0-33.0); MEAN CORPUSCULAR HGB CONC 32.2 g/dl (32.0-36.5); MEAN CORPUSCULAR VOLUME 97.5 fl (80.0-96.0); MONO # 0.6 10^3/uL (0.0-0.8); MONO % 9.9 % (0.0-5.0); NEUTROPHILS % 65.5 % (36.0-66.0); PLATELET COUNT, AUTOMATED 239 10^3/uL (150-450); RED BLOOD COUNT 4.36 10^6/uL (4.30-6.10); RED CELL DISTRIBUTION WIDTH 11.9 % (11.5-14.5); WHITE BLOOD COUNT 6.1 10^3/uL (4.0-10.0)
[2018-07-01 14:23] LABS: ALBUMIN 3.9 GM/DL (3.2-5.2); ALKALINE PHOSPHATASE 97 U/L (45-117); ALT/SGPT 27 U/L (12-78); ANION GAP 5 MEQ/L (8-16); AST/SGOT 24 U/L (7-37); BILIRUBIN,TOTAL 0.5 MG/DL (0.2-1.0); BLOOD UREA NITROGEN 20 MG/DL (7-18); CALCIUM LEVEL 9.5 MG/DL (8.8-10.2); CARBON DIOXIDE LEVEL 31 MEQ/L (21-32); CHLORIDE LEVEL 106 MEQ/L (98-107); CHOLESTEROL LEVEL 152 MG/DL (<200); CREATININE FOR GFR 1.41 MG/DL (0.70-1.30); FREE T4 0.87 NG/DL (0.76-1.46); GLOMERULAR FILTRATION RATE 52.5 (>42); GLUCOSE, FASTING 99 MG/DL (70-100); HDL CHOLESTEROL 50 MG/DL (>40); LDL CHOLESTEROL 88 MG/DL (<100); NON-HDL-C 102 MG/DL; POTASSIUM SERUM 5.8 MEQ/L (3.5-5.1); PSA SCREENING 1.23 NG/ML (< 4.0); SODIUM LEVEL 142 MEQ/L (136-145); TOTAL PROTEIN 6.9 GM/DL (6.4-8.2); TRIGLYCERIDES LEVEL 70 MG/DL (<150)
[2018-07-01 14:26] LABS: TOTAL 25(OH) VITAMIN D 52.4 NG/ML (30.0-100.0)
[2018-07-01 15:31] LABS: ESTIMATED AVERAGE GLUCOSE 108 MG/DL (60-110); HEMOGLOBIN A1c 5.4 %
== END ==
LOC: M SMT 10:01
DX: E78.5 Hyperlipidemia, unspecified (principal); N18.3 Chronic kidney disease, stage 3 (moderate); N40.0 Benign prostatic hyperplasia without lower urinary tract symptoms; Z79.899 Other long term (current) drug therapy; E55.9 Vitamin D deficiency, unspecified
CPT/HCPCS: 84443

== ENCOUNTER 2018-12-07 10:13 | Day surgery (SDC) | payer MEDICARE, BC, OTHER ==
[~2018-12-07] VITALS: Ht 175.3 cm; Wt 81.6 kg
[~2018-12-07 10:13] MED LIST changes: +BUSP5TA PO; +FERR325T16 PO; +FISH7.5C PO; +FLOM0.4C39 PO; -FLOM5CAP PO; -GABA-283 PO; +GABA-845 PO; +PAXI30TA11 PO; +STOO100C PO; +VITA100066 PO
[2018-12-07] MEDS ORDERED: NS 1,000 ML IV ONE (10:45)
[2018-12-07] MEDS ORDERED: LIDOCAINE 2% INJ 100 MG/5 ML SDV (FOR ANES.) As Ordered ONE (11:00)
[2018-12-07] MEDS ORDERED: PROPOFOL 200 MG/20 ML VIAL As Ordered ONE (11:01)
--- NOTE | 2018-12-07 11:27 | ROOR ---
Patient Name: Antony Skinner Procedure Date: 12/07/2018 11:01 AM Date of : 1945 Age: 73 Room: [facility] Gender: Male Note Status: Finalized Procedure: Colonoscopy Indications: Screening for colorectal malignant neoplasm Providers: Arun GARCIA MD Referring MD: Anthony Dodge MD Requesting Provider: Medicines: Monitored Anesthesia Care Complications: No immediate complications. Procedure: Pre-Anesthesia Assessment: - The heart rate, respiratory rate, oxygen saturations, blood pressure, adequacy of pulmonary ventilation, and response to care were monitored throughout the procedure. The Colonoscope was introduced through the anus and advanced to the cecum, identified by appendiceal orifice and ileocecal valve. The colonoscopy was performed without difficulty. The patient tolerated the procedure well. Findings: The perianal and digital rectal examinations were normal. A 5 mm polyp was found in the cecum. The polyp was sessile. The polyp was removed with a cold snare. Resection and retrieval were complete. Redundant sigmoid colon and small Internal Hemorrhoids. The exam was otherwise without abnormality on direct and retroflexion views. Impression: - One 5 mm polyp in the cecum, removed with a cold snare. Resected and retrieved. - Small Internal Hemorrhoids. - The examination was otherwise normal on direct and retroflexion views. Recommendation: - Repeat colonoscopy in 5 years for surveillance. Arun Garcia MD Arun GARCIA MD 12/07/2018 11:26:41 AM Electronically signed by Arun GARCIA MD Number of Addenda: 0 Note Initiated On: 12/07/2018 11:01 AM Estimated Blood Loss: Estimated blood loss: none.
[2018-12-07 11:45] VITALS: BP 120/77
== END 2018-12-07 11:51 | disposition home or self-care (01) ==
LOC: M OPP 10:13
PROVIDERS: ATTEND Internal Medicine Gastroenterology
DX: Z12.11 Encounter for screening for malignant neoplasm of colon (principal); D12.0 Benign neoplasm of cecum; K64.8 Other hemorrhoids; Z79.899 Other long term (current) drug therapy

== ENCOUNTER → 2019-03-22 | Outpatient (REF) | payer MEDICARE, OTHER ==
[~2019-03-22] MED LIST changes: +MM S100C PO; -STOO100C PO
[2019-03-22 12:38] LABS: HEMATOCRIT 42.7 % (42.0-52.0); HEMOGLOBIN 14.1 g/dl (13.5-17.5); MEAN CORPUSCULAR HEMOGLOBIN 32.7 pg (27.0-33.0); MEAN CORPUSCULAR VOLUME 99.1 fl (80.0-96.0); PLATELET COUNT, AUTOMATED 211 10^3/uL (150-450); RED BLOOD COUNT 4.31 10^6/uL (4.30-6.10); WHITE BLOOD COUNT 6.6 10^3/uL (4.0-10.0)
[2019-03-22 13:55] LABS: ALBUMIN 3.8 GM/DL (3.2-5.2); BILIRUBIN,TOTAL 0.5 MG/DL (0.2-1.0); CALCIUM LEVEL 8.7 MG/DL (8.8-10.2); CHOLESTEROL RISK RATIO 3.222 (<5); CREATININE FOR GFR 1.47 MG/DL (0.70-1.30); FREE T4 0.88 NG/DL (0.76-1.46); GLOMERULAR FILTRATION RATE 49.9 (>42); PERCENT SATURATION 21.9 % (19.7-50.0); POTASSIUM SERUM 5.1 MEQ/L (3.5-5.1); THYROID STIMULATING HORMONE 3.15 uIU/ML (0.358-3.740); TOTAL 25(OH) VITAMIN D 47.1 NG/ML (30.0-100.0); TOTAL PROTEIN 7.1 GM/DL (6.4-8.2)
== END ==
LOC: M SFHCADAM 09:11
PROVIDERS: ATTEND Family Medicine
DX: N18.3 Chronic kidney disease, stage 3 (moderate) (principal); E78.5 Hyperlipidemia, unspecified; E61.1 Iron deficiency; F41.8 Other specified anxiety disorders

== ENCOUNTER → 2019-06-16 | Outpatient (CLI) | payer MEDICARE, OTHER ==
--- NOTE | 2019-06-17 13:25 | REP ---
Left ribs series four views: There are fractures of the left sixth and seventh ribs anteriorly identified on one view only. PA chest: Comparison is 01/13/2017. There is no pneumothorax, hemothorax or pulmonary contusion. Lung skelton are clear. Cardiac size is normal. The shana, mediastinum, skeletal structures are unremarkable except for two orthopedic anchor screws in the right humeral head, unchanged. Impression: Negative PA chest. Electronically Signed by Jewel Torre MD 06/17/2019 01:17 P
== END ==
LOC: M ADAMS 16:53
PROVIDERS: ATTEND Physician Assistant
DX: S20.212A Contusion of left front wall of thorax, initial encounter (principal); X58.XXXA Exposure to other specified factors, initial encounter; Y92.9 Unspecified place or not applicable

== ENCOUNTER → 2019-12-03 | Outpatient (CLI) | payer MEDICARE, OTHER | LOC: M ADAMS 09:38 | PROVIDERS: ATTEND Family Medicine | DX: E61.1 Iron deficiency (principal); N18.3 Chronic kidney disease, stage 3 (moderate); E78.5 Hyperlipidemia, unspecified ==

== ENCOUNTER → 2019-12-03 | Outpatient (REF) | payer MEDICARE, OTHER ==
[2019-12-03 10:34] LABS: BILIRUBIN,TOTAL 0.6 MG/DL (0.2-1.0); CALCIUM LEVEL 9.2 MG/DL (8.8-10.2); CHOLESTEROL RISK RATIO 3.211 (<5); CREATININE FOR GFR 1.47 MG/DL (0.70-1.30); GLOMERULAR FILTRATION RATE 49.9 (>42); PERCENT SATURATION 31.6 % (19.7-50.0); TOTAL PROTEIN 6.9 GM/DL (6.4-8.2)
[2019-12-03 10:54] LABS: HEMATOCRIT 43.8 % (42.0-52.0); HEMOGLOBIN 14.2 g/dl (13.5-17.5); MEAN CORPUSCULAR HEMOGLOBIN 32.1 pg (27.0-33.0); MEAN CORPUSCULAR HGB CONC 32.4 g/dl (32.0-36.5); MEAN CORPUSCULAR VOLUME 98.9 fl (80.0-96.0); PLATELET COUNT, AUTOMATED 210 10^3/uL (150-450); RED BLOOD COUNT 4.43 10^6/uL (4.30-6.10); WHITE BLOOD COUNT 6.9 10^3/uL (4.0-10.0)
== END ==
LOC: M SFHCADAM 08:31
PROVIDERS: ATTEND Family Medicine
DX: E61.1 Iron deficiency (principal); N18.3 Chronic kidney disease, stage 3 (moderate); E78.5 Hyperlipidemia, unspecified; Z12.5 Encounter for screening for malignant neoplasm of prostate
CPT/HCPCS: 80053; 80061; 82728; 83550; 85027; 85046; G0103

== ENCOUNTER → 2020-02-02 | Outpatient (CLI) | payer MEDICARE, OTHER | LOC: M LABSMTC 10:22 | PROVIDERS: ATTEND Family Medicine | DX: Z03.818 Encounter for observation for suspected exposure to other biological agents ruled out (principal); Z11.59 Encounter for screening for other viral diseases ==

== ENCOUNTER → 2020-02-20 | Outpatient (CLI) | payer MEDICARE, BC, OTHER ==
--- NOTE | 2020-02-21 03:31 | REP ---
REASON: Palpable mass over the sternum. Assess for cyst versus solid lesion. Multiple ultrasonographic images over a palpable mass situation in the upper sternal region show no cystic or solid masses. A negative ultrasound does not obviate further anatomical imaging with modalities such as contrast CT or contrast-enhanced MRI. Electronically Signed by Mike Vaughn DO 02/21/2020 11:12 A
== END ==
LOC: M RAD 15:24
PROVIDERS: ATTEND Physician Assistant
DX: R22.2 Localized swelling, mass and lump, trunk (principal)

== ENCOUNTER → 2020-12-24 | Outpatient (REF) | payer MEDICARE, OTHER ==
[~2020-12-24] MED LIST changes: -ASPI81TA85 PO; +ASPI81TA86 PO; +FERR324T21 PO; -FERR325T16 PO; -PEG1POW PO; +POLY17PO18 PO
[2020-12-24 12:46] LABS: HEMOGLOBIN 13.6 g/dl (13.5-17.5); MEAN CORPUSCULAR HEMOGLOBIN 32.2 pg (27.0-33.0); MEAN CORPUSCULAR HGB CONC 32.4 g/dl (32.0-36.5); MEAN CORPUSCULAR VOLUME 99.3 fl (80.0-96.0); PLATELET COUNT, AUTOMATED 211 10^3/uL (150-450); RED BLOOD COUNT 4.23 10^6/uL (4.30-6.10); WHITE BLOOD COUNT 5.7 10^3/uL (4.0-10.0)
[2020-12-24 13:15] LABS: ALBUMIN 3.9 GM/DL (3.2-5.2); BILIRUBIN,TOTAL 0.4 MG/DL (0.2-1.0); CALCIUM LEVEL 9.5 MG/DL (8.8-10.2); CHOLESTEROL RISK RATIO 3.44 (<5); CREATININE FOR GFR 1.54 MG/DL (0.70-1.30); GLOMERULAR FILTRATION RATE 47.1 (>42); PERCENT SATURATION 17.1 % (19.7-50.0); POTASSIUM SERUM 5.1 MEQ/L (3.5-5.1); TOTAL PROTEIN 6.5 GM/DL (6.4-8.2)
== END ==
LOC: M SFHCADAM 08:33
PROVIDERS: ATTEND Family Medicine
DX: E61.1 Iron deficiency (principal); N18.30 Chronic kidney disease, stage 3 unspecified; E78.5 Hyperlipidemia, unspecified; Z12.5 Encounter for screening for malignant neoplasm of prostate
CPT/HCPCS: 80053; 80061; 82728; 83550; 85027; G0103

== ENCOUNTER → 2021-01-08 | Outpatient (REF) | payer MEDICARE, OTHER ==
[~2021-01-08] MED LIST changes: +GABA-283 PO; -GABA-845 PO
[2021-01-08 13:34] LABS: ALBUMIN 3.8 GM/DL (3.2-5.2); CALCIUM LEVEL 9.5 MG/DL (8.8-10.2); CREATININE FOR GFR 1.49 MG/DL (0.70-1.30); FREE T4 0.82 NG/DL (0.76-1.46); GLOMERULAR FILTRATION RATE 48.9 (>42); MAGNESIUM LEVEL 2.5 MG/DL (1.8-2.4); POTASSIUM SERUM 5.1 MEQ/L (3.5-5.1); THYROID STIMULATING HORMONE 3.17 uIU/ML (0.358-3.740)
== END ==
LOC: M SFHCADAM 09:59
PROVIDERS: ATTEND Family Medicine
DX: I49.3 Ventricular premature depolarization (principal); Z79.899 Other long term (current) drug therapy
CPT/HCPCS: 80069; 83735; 84439; 84443; 93005; G0463

== ENCOUNTER → 2021-01-23 | Outpatient (CLI) | payer MEDICARE, BC, OTHER ==
[~2021-01-23] MED LIST changes: +ISOVUE-300 61% 50ML VIAL As Ordered ONE; +LIDOCAINE 1% MDV 20ML VIAL As Ordered ONE; +methylPREDNISolone SUSP 40MG/ML 1ML VIAL (DEPO MEDROL) As Ordered ONE
--- NOTE | 2021-01-23 20:23 | REP ---
INDICATION: LT SHOULDER OA W/ PAIN. COMPARISON: None. TECHNIQUE: The procedure was performed under the direct supervision of Dr. Carvalho. The benefits and risks including but not limited to pain infection and bleeding and anaphylaxis were explained to the patient and informed consent was obtained. The left glenohumeral joint space was localized using fluoroscopic guidance. The skin was prepped and draped in a sterile fashion. 1% lidocaine was used as a local anesthetic. Using fluoroscopic guidance, and last image hold technology, a 22-gauge spinal needle was inserted and advanced into the joint. 0.5 ml of Isovue-300 was injected to verify placement. Five ml of a solution containing 3 ml of 1% Xylocaine and 2 mL of Depo-Medrol mg was injected. The needle was then removed. The patient tolerated the procedure well and there were no immediate complications. Less than 6 seconds of fluoro time was utilized for this procedure. FINDINGS: None IMPRESSION: Fluoro guidance for left shoulder injection. <Electronically signed by Hany Malhotra > 01/23/21 1331 <Electronically signed by Jewel Carvalho > 01/23/21 2019
== END ==
LOC: M RADPRO 10:26
PROVIDERS: ATTEND Physician Assistant Surgical
DX: M19.012 Primary osteoarthritis, left shoulder (principal)
CPT/HCPCS: 20610; 77002; J1030; Q9967

== ENCOUNTER → 2021-02-08 | Outpatient (CLI) | payer MEDICARE, BC, OTHER ==
[~2021-02-08] MED LIST changes: -ISOVUE-300 61% 50ML VIAL As Ordered ONE; -LIDOCAINE 1% MDV 20ML VIAL As Ordered ONE; -methylPREDNISolone SUSP 40MG/ML 1ML VIAL (DEPO MEDROL) As Ordered ONE
--- NOTE | 2021-02-09 17:01 | HOLTMON ---
[facility] Test Date: 2021-02-08 Pat Name: SADIE ANGELA Department: Room: - Gender: Male Ed Transporter: : 1945 Requested By: Anthony Dodge Order Number: [id number] Reading MD: Chris Monahan Interpretive Statements No significant diary entries. Heart rate variability was blunted. There were many unifocal PVCs and occasional bigeminy but no significant runs. R on T phenomenon was observed on a few occasions. There was minimal supraventricular ectopy. No significant ST events or pauses. No atrial fibrillation was seen. Electronically Signed on 02-09-2021 17:01:08 EDT by Chris Monahan
== END ==
LOC: M EKG 10:18
PROVIDERS: ATTEND Family Medicine
DX: I49.3 Ventricular premature depolarization (principal)

== ENCOUNTER → 2021-12-26 | Outpatient (REF) | payer MEDICARE, OTHER ==
[2021-12-26 14:38] LABS: HEMATOCRIT 40.1 % (42.0-52.0); MEAN CORPUSCULAR HEMOGLOBIN 31.8 pg (27.0-33.0); MEAN CORPUSCULAR HGB CONC 32.4 g/dl (32.0-36.5); PLATELET COUNT, AUTOMATED 230 10^3/uL (150-450); RED BLOOD COUNT 4.09 10^6/uL (4.30-6.10)
[2021-12-26 15:09] LABS: ALBUMIN 3.9 GM/DL (3.2-5.2); CALCIUM LEVEL 9.1 MG/DL (8.8-10.2); CHOLESTEROL RISK RATIO 3.4 (<5); CREATININE FOR GFR 1.52 MG/DL (0.70-1.30); FREE T4 0.9 NG/DL (0.76-1.46); GLOMERULAR FILTRATION RATE 47.7 (>42); POTASSIUM SERUM 4.9 MEQ/L (3.5-5.1); THYROID STIMULATING HORMONE 3.07 uIU/ML (0.358-3.740); TOTAL PROTEIN 6.4 GM/DL (6.4-8.2)
== END ==
LOC: M SFHCADAM 09:27
PROVIDERS: ATTEND Family Medicine
DX: E78.5 Hyperlipidemia, unspecified (principal); F41.8 Other specified anxiety disorders; N18.30 Chronic kidney disease, stage 3 unspecified; Z12.5 Encounter for screening for malignant neoplasm of prostate
CPT/HCPCS: 80053; 80061; 84439; 84443; 85027; G0103

== ENCOUNTER → 2022-06-26 | Outpatient (REF) | payer MEDICARE, OTHER ==
[~2022-06-26] MED LIST changes: +FISH10005 PO; -FISH7.5C PO
[2022-06-26 13:41] LABS: HEMATOCRIT 40.7 % (42.0-52.0); HEMOGLOBIN 13.1 g/dl (13.5-17.5); MEAN CORPUSCULAR HEMOGLOBIN 31.6 pg (27.0-33.0); MEAN CORPUSCULAR HGB CONC 32.2 g/dl (32.0-36.5); MEAN CORPUSCULAR VOLUME 98.3 fl (80.0-96.0); PLATELET COUNT, AUTOMATED 222 10^3/uL (150-450); RED BLOOD COUNT 4.14 10^6/uL (4.30-6.10); WHITE BLOOD COUNT 6.4 10^3/uL (4.0-10.0)
[2022-06-26 14:21] LABS: CALCIUM LEVEL 9.2 MG/DL (8.8-10.2); CREATININE FOR GFR 1.55 MG/DL (0.70-1.30); GLOMERULAR FILTRATION RATE 46.5 (>42); PERCENT SATURATION 20.5 % (19.7-50.0); POTASSIUM SERUM 4.8 MEQ/L (3.5-5.1)
== END ==
LOC: M SFHCADAM 12:38
PROVIDERS: ATTEND Family Medicine
DX: D64.9 Anemia, unspecified (principal); N18.31 Chronic kidney disease, stage 3a; E61.1 Iron deficiency

== ENCOUNTER → 2022-07-02 | Outpatient (CLI) | payer MEDICARE, OTHER | LOC: M ADAMS 11:37 | PROVIDERS: ATTEND Family Medicine | DX: Z00.00 Encounter for general adult medical examination without abnormal findings (principal) ==

== ENCOUNTER → 2023-01-05 | Outpatient (REF) | payer MEDICARE, OTHER ==
[~2023-01-05] MED LIST changes: -PAXI20TA29 PO; +PAXI20TA30 PO; -PAXI30TA11 PO; +PAXI30TA12 PO
[2023-01-05 13:28] LABS: FERRITIN 95.1 NG/ML (10.5-307.3); FREE T4 0.88 NG/DL (0.89-1.76); THYROID STIMULATING HORMONE 4.158 uIU/ML (0.55-4.78)
[2023-01-05 13:29] LABS: ALBUMIN 3.9 G/DL (3.2-5.2); BILIRUBIN,TOTAL 0.5 MG/DL (0.3-1.2); CHOLESTEROL RISK RATIO 3.66 (<5); CREATININE FOR GFR 1.54 MG/DL (0.70-1.30); GLOMERULAR FILTRATION RATE 46.9 (>42); HDL CHOLESTEROL 40.1 MG/DL (>40); LDL CHOLESTEROL 86.7 MG/DL (<100); NON-HDL-C 106.9 MG/DL; PERCENT SATURATION 18.9 % (19.7-50.0); POTASSIUM SERUM 5.3 MMOL/L (3.5-5.1); TOTAL PROTEIN 6.5 G/DL (5.7-8.2)
[2023-01-05 13:35] LABS: HEMATOCRIT 40.5 % (42.0-52.0); HEMOGLOBIN 13.1 g/dl (13.5-17.5); MEAN CORPUSCULAR HEMOGLOBIN 32.4 pg (27.0-33.0); MEAN CORPUSCULAR HGB CONC 32.3 g/dl (32.0-36.5); MEAN CORPUSCULAR VOLUME 100.2 fl (80.0-96.0); PLATELET COUNT, AUTOMATED 248 10^3/uL (150-450); RED BLOOD COUNT 4.04 10^6/uL (4.30-6.10)
== END ==
LOC: M SFHCADAM 09:19
PROVIDERS: ATTEND Family Medicine
DX: D64.9 Anemia, unspecified (principal); N18.31 Chronic kidney disease, stage 3a; E61.1 Iron deficiency; E78.5 Hyperlipidemia, unspecified; F41.8 Other specified anxiety disorders

== ENCOUNTER 2023-08-22 20:59 | Emergency (ER) | payer MEDICARE, BC, OTHER ==
[~2023-08-22 20:59] MED LIST changes: -GABA-283 PO; +GABA-284 PO
[2023-08-22 21:48] LABS: BASO % 0.4 % (0.0-1.0); EOS # 0.4 10^3/uL (0.0-0.5); HEMATOCRIT 38.1 % (42.0-52.0); HEMOGLOBIN 12.7 g/dl (13.5-17.5); LYMPH # 2.1 10^3/uL (1.5-5.0); LYMPH % 26.9 % (24.0-44.0); MEAN CORPUSCULAR HEMOGLOBIN 32.2 pg (27.0-33.0); MEAN CORPUSCULAR HGB CONC 33.3 g/dl (32.0-36.5); MEAN CORPUSCULAR VOLUME 96.5 fl (80.0-96.0); MONO # 0.8 10^3/uL (0.0-0.8); MONO % 9.6 % (2.0-8.0); NEUTROPHILS # 4.5 10^3/uL (1.5-8.5); NEUTROPHILS % 57.8 % (36.0-66.0); PLATELET COUNT, AUTOMATED 230 10^3/uL (150-450); RED BLOOD COUNT 3.95 10^6/uL (4.30-6.10); WHITE BLOOD COUNT 7.8 10^3/uL (4.0-10.0)
[2023-08-22 22:22] LABS: CALCIUM LEVEL 9.2 MG/DL (8.3-10.6); CK-MB VALUE MASS 1.5 NG/ML (<3.6); CREATININE FOR GFR 1.54 MG/DL (0.70-1.30); GLOMERULAR FILTRATION RATE 46.7 (>42); MB/CK RELATIVE INDEX 1.09 (< OR =4); POTASSIUM SERUM 4.5 MMOL/L (3.5-5.1)
[2023-08-22 23:34] LABS: CK-MB VALUE MASS 1.4 NG/ML (<3.6)
[2023-08-22 23:35] LABS: MB/CK RELATIVE INDEX 1.13 (< OR =4)
[2023-08-23] MEDS ORDERED: ASPI81TA26 PO (02:17)
[2023-08-23] MEDS ORDERED: NS 1,000 ML IV ONE (04:55)
[2023-08-23] MEDS ORDERED: ISOVUE-370 76% 100ML VIAL As Ordered ONE (05:00)
[2023-08-23] MEDS ORDERED: KETOROLAC 30 MG/ML 1ML VIAL IV ONE (06:05)
[2023-08-23 06:15] VITALS: BP 177/71; TEMP 98.7; O2SAT 98
== END 2023-08-23 06:30 | disposition home or self-care (01) ==
LOC: M ED 20:59
DX: R07.89 Other chest pain (principal); R94.31 Abnormal electrocardiogram [ECG] [EKG]; E78.5 Hyperlipidemia, unspecified; F32.A Depression, unspecified; Z79.899 Other long term (current) drug therapy; Z79.82 Long term (current) use of aspirin
CPT/HCPCS: 71045; 71275; 80048; 82550; 82553; 84484; 85025; 93005; 93041; 94760; 96360; 96361; 99285; Q9967

== ENCOUNTER → 2023-08-31 | Outpatient (REF) | payer MEDICARE, OTHER ==
[~2023-08-31] MED LIST changes: +ASPI81TA26 PO
[2023-08-31 14:34] LABS: HEMATOCRIT 42.8 % (42.0-52.0); HEMOGLOBIN 14.1 g/dl (13.5-17.5); MEAN CORPUSCULAR HEMOGLOBIN 32.3 pg (27.0-33.0); MEAN CORPUSCULAR HGB CONC 32.9 g/dl (32.0-36.5); MEAN CORPUSCULAR VOLUME 97.9 fl (80.0-96.0); PLATELET COUNT, AUTOMATED 245 10^3/uL (150-450); RED BLOOD COUNT 4.37 10^6/uL (4.30-6.10); WHITE BLOOD COUNT 7.8 10^3/uL (4.0-10.0)
[2023-08-31 14:43] LABS: ALBUMIN 4.1 G/DL (3.2-5.2); BILIRUBIN,TOTAL 0.5 MG/DL (0.3-1.2); CALCIUM LEVEL 9.4 MG/DL (8.3-10.6); CHOLESTEROL RISK RATIO 3.95 (<5); CREATININE FOR GFR 1.52 MG/DL (0.70-1.30); GLOMERULAR FILTRATION RATE 47.5 (>42); HDL CHOLESTEROL 44.5 MG/DL (>40); LDL CHOLESTEROL 107.1 MG/DL (<100); NON-HDL-C 131.5 MG/DL; POTASSIUM SERUM 4.8 MMOL/L (3.5-5.1); TOTAL PROTEIN 6.6 G/DL (5.7-8.2)
[2023-08-31 14:47] LABS: FREE T4 0.95 NG/DL (0.89-1.76); THYROID STIMULATING HORMONE 5.088 uIU/ML (0.55-4.78)
== END ==
LOC: M SFHCADAM 09:20
PROVIDERS: ATTEND Family Medicine
DX: D64.9 Anemia, unspecified (principal); E78.5 Hyperlipidemia, unspecified; R79.89 Other specified abnormal findings of blood chemistry

== ENCOUNTER → 2023-10-23 | Outpatient (REF) | payer MEDICARE, OTHER ==
[2023-10-23 14:09] LABS: THYROID STIMULATING HORMONE 1.143 uIU/ML (0.55-4.78)
[2023-10-23 14:10] LABS: FREE T4 1.16 NG/DL (0.89-1.76)
[2023-10-23 14:13] LABS: THYROID PEROXIDASE ANTIBODY < 28.0 U/ML (<60.0)
== END ==
LOC: M SFHCADAM 11:21
PROVIDERS: ATTEND Family Medicine
DX: E03.8 Other specified hypothyroidism (principal)

== ENCOUNTER 2024-03-15 06:45 | Day surgery (SDC) | payer MEDICARE, BC ==
[~2024-03-15] VITALS: Ht 177.8 cm; Wt 83.0 kg
[~2024-03-15 06:45] MED LIST changes: +CALC600T61 PO; +CO Q100C10 PO; +EYECAP2 PO; +LEVO50TA5 PO; +NS 1,000 ML IV ONE; +THERTAB52 PO; +VITA-158 PO
[2024-03-15] MEDS ORDERED: propofoL 200 MG/20 ML VIAL As Ordered ONE (07:19)
[2024-03-15] MEDS ORDERED: LIDOCAINE 2% 100MG/5ML SDV (FOR ANES.) As Ordered ONE (07:23)
[2024-03-15] MEDS ORDERED: GLYCOPYRROLATE INJ 0.2 MG/ML 2 ML VIAL As Ordered ONE (07:56)
[2024-03-15 08:13] VITALS: TEMP 97.6
[2024-03-15 08:33] VITALS: BP 156/74; O2SAT 98
== END 2024-03-15 08:40 | disposition home or self-care (01) ==
LOC: M OPP 06:45
PROVIDERS: ATTEND Internal Medicine Gastroenterology
DX: Z12.11 Encounter for screening for malignant neoplasm of colon (principal); Z86.010 Personal history of colon polyps; D12.4 Benign neoplasm of descending colon; K64.8 Other hemorrhoids; K57.30 Diverticulosis of large intestine without perforation or abscess without bleeding; I48.91 Unspecified atrial fibrillation; E03.9 Hypothyroidism, unspecified; Z79.02 Long term (current) use of antithrombotics/antiplatelets; Z79.82 Long term (current) use of aspirin; Z79.890 Hormone replacement therapy; Z79.899 Other long term (current) drug therapy

== ENCOUNTER → 2024-07-29 | Outpatient (CLI) | payer MEDICARE, BC ==
[~2024-07-29] MED LIST changes: -NS 1,000 ML IV ONE
[2024-07-29 16:18] LABS: BASO # 0.1 10^3/uL (0.0-0.2); BASO % 0.7 % (0.0-1.0); EOS # 0.3 10^3/uL (0.0-0.5); EOS % 3.6 % (0.0-3.0); HEMATOCRIT 37.8 % (42.0-52.0); HEMOGLOBIN 12.1 g/dl (13.5-17.5); LYMPH # 1.8 10^3/uL (1.5-5.0); LYMPH % 21.6 % (24.0-44.0); MEAN CORPUSCULAR HEMOGLOBIN 31.7 pg (27.0-33.0); MONO # 0.9 10^3/uL (0.0-0.8); MONO % 11.6 % (2.0-8.0); NEUTROPHILS # 5.1 10^3/uL (1.5-8.5); NEUTROPHILS % 62.3 % (36.0-66.0); PLATELET COUNT, AUTOMATED 243 10^3/uL (150-450); RED BLOOD COUNT 3.82 10^6/uL (4.30-6.10); WHITE BLOOD COUNT 8.1 10^3/uL (4.0-10.0)
[2024-07-29 16:31] LABS: URIC ACID 6.7 MG/DL (3.7-9.2)
[2024-07-29 16:32] LABS: PSA SCREENING 1.73 NG/ML (< 4.00)
[2024-07-29 16:34] LABS: CALCIUM LEVEL 9.4 MG/DL (8.3-10.6); CHOLESTEROL RISK RATIO 3.74 (<5); CREATININE FOR GFR 1.71 MG/DL (0.70-1.30); GLOMERULAR FILTRATION RATE 41.3 (>42); HDL CHOLESTEROL 40.6 MG/DL (>40); LDL CHOLESTEROL 89.2 MG/DL (<100); NON-HDL-C 111.4 MG/DL; POTASSIUM SERUM 4.7 MMOL/L (3.5-5.1)
[2024-07-29 16:36] LABS: THYROID STIMULATING HORMONE 2.363 uIU/ML (0.55-4.78)
[2024-07-29 16:37] LABS: FREE T4 1.28 NG/DL (0.89-1.76)
== END ==
LOC: M PLAIMG 13:38
DX: N18.31 Chronic kidney disease, stage 3a (principal); E03.8 Other specified hypothyroidism; Z12.5 Encounter for screening for malignant neoplasm of prostate; E78.5 Hyperlipidemia, unspecified; M72.2 Plantar fascial fibromatosis

== ENCOUNTER → 2024-11-28 | Outpatient (CLI) | payer MEDICARE, BC ==
[2024-11-28 09:10] LABS: HEMATOCRIT 40.4 % (42.0-52.0); HEMOGLOBIN 13.2 g/dl (13.5-17.5); MEAN CORPUSCULAR HEMOGLOBIN 32.3 pg (27.0-33.0); MEAN CORPUSCULAR HGB CONC 32.7 g/dl (32.0-36.5); MEAN CORPUSCULAR VOLUME 98.8 fl (80.0-96.0); PLATELET COUNT, AUTOMATED 226 10^3/uL (150-450); RED BLOOD COUNT 4.09 10^6/uL (4.30-6.10); WHITE BLOOD COUNT 6.8 10^3/uL (4.0-10.0)
[2024-11-28 09:15] LABS: ERYTHROCYTE SEDIMENTATION RATE 18 mm/hr (0-20)
[2024-11-28 09:29] LABS: INR 0.95
[2024-11-28 09:36] LABS: ALBUMIN 3.9 G/DL (3.2-5.2); BILIRUBIN,TOTAL 0.7 MG/DL (0.3-1.2); CALCIUM LEVEL 9.3 MG/DL (8.3-10.6); CREATININE FOR GFR 1.68 MG/DL (0.70-1.30); GLOMERULAR FILTRATION RATE 42.2 (>42); POTASSIUM SERUM 4.8 MMOL/L (3.5-5.1); TOTAL PROTEIN 6.8 G/DL (5.7-8.2)
== END ==
LOC: M RAD 08:02
PROVIDERS: ATTEND Internal Medicine Hematology & Oncology
DX: Z01.818 Encounter for other preprocedural examination (principal); Z79.01 Long term (current) use of anticoagulants